=== PATIENT | male | born 1980 | race American Indian/Alaskan Native ===

== ENCOUNTER 2017-12-23 11:04 | Emergency (ER) | payer OTHER ==
[2017-12-23] MEDS ORDERED: ATIVAN IM ONE (11:08)
[2017-12-23] MEDS ORDERED: HALDOL IM ONE (11:08)
[2017-12-23] MEDS ORDERED: ATIVAN IV ONE (11:09)
[2017-12-23] MEDS ORDERED: NACL 0.9% 1000 ML 1,000 ML IV ONE (11:09)
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
[2017-12-23] MEDS ORDERED: BOOSTRIX IM ONE (11:14)
[2017-12-23 11:46] LABS: Basophils # (Auto) 0.1 K/mm3 (0.0-0.1); Eosinophils # (Auto) 0.1 K/mm3 (0.0-0.4); Eosinophils % (Auto) 1.2 % (0.0-4.3); Hematocrit 40.8 % (35.5-45.6); Hemoglobin 14.1 gm/dl (11.8-15.2); Lymphocytes % (Auto) 23.5 % (13.4-35.0); Mean Corpuscular HGB Conc 35 % (32-34); Mean Corpuscular Hemoglobin 33 pg (28-32); Mean Corpuscular Volume 96 fl (84-94); Monocytes # (Auto) 0.5 K/mm3 (0.0-0.8); Monocytes % (Auto) 6.2 % (0.0-7.3); Platelet Count 350 K/mm3 (140-440); Red Blood Count 4.24 M/mm3 (3.65-5.03); Red Cell Distribution Width 13.4 % (13.2-15.2)
[2017-12-23 11:47] LABS: Bilirubin,Urine NEG (Negative); Blood,Urine SM (Negative); Color,Urine Yellow (Yellow); Hyaline Casts,Urine 3 /LPF; Mucus,Urine FEW /HPF; Urobilinogen,Urine < 2.0 mg/dL (<2.0)
[2017-12-23 11:50] LABS: BUN/Creatinine Ratio 17; Blood Urea Nitrogen 15 mg/dL (9-20); Calcium 9.5 mg/dL (8.4-10.2); Hemolysis Index 70
--- NOTE | 2017-12-23 11:52 | Cat Scan Report ---
CT HEAD WITHOUT CONTRAST INDICATION: Headache. COMPARISON: None similar. FINDINGS: Noncontrast head CT demonstrates normal, symmetric ventricles and sulci without acute or recent infarct, hemorrhage, mass effect or midline shift. No abnormal extra-axial fluid collections. Posterior fossa structures and basilar cisterns appear within normal limits. Symmetric eye globes. Slight leftward nasal septal bowing and a 3 mm leftward nasal septal spur. Mild left maxillary and right sphenoid sinus mucosal thickening. Clear remainder imaged paranasal sinuses and mastoid air cells. Intact calvarium. Normal overlying scalp soft tissues. Few radiopaque dental material incidentally noted. Cervical spondylosis. CONCLUSION: No acute intracranial CT abnormality with sinusitis and few other findings, as described. Thank you for the opportunity to participate in this patient's care.
[2017-12-23 11:55] LABS: Amphetamine Screen,Urine PRESUMPTIVE NEGATIVE; Benzodiazepines Screen,Urine PRESUMPTIVE NEGATIVE; Methadone Screen,Urine PRESUMPTIVE NEGATIVE; Opiate Screen,Urine PRESUMPTIVE NEGATIVE
[2017-12-23 12:23] LABS: Cannabinoid Screen,Urine PRESUMPTIVE POSITIVE; Cocaine Screen,Urine PRESUMPTIVE POSITIVE
[2017-12-23] MEDS ORDERED: NACL 0.9% 500 ML IR ONE (12:36)
[2017-12-23] MEDS ORDERED: XYLOCAINE 2% INFILTRATI ONE (12:47)
[2017-12-23] MEDS ORDERED: TRIPLE ANTIBIOTIC TP ONE (15:22)
[2017-12-23 15:42] VITALS: BP 116/85
== END 2017-12-23 16:23 | disposition home or self-care (01) ==
LOC: ED 11:04
DX: S61.311A Laceration without foreign body of left index finger with damage to nail, initial encounter (principal); E86.0 Dehydration; F10.921 Alcohol use, unspecified with intoxication delirium; F19.121 Other psychoactive substance abuse with intoxication delirium; F17.200 Nicotine dependence, unspecified, uncomplicated; F12.10 Cannabis abuse, uncomplicated; Z79.899 Other long term (current) drug therapy; W25.XXXA Contact with sharp glass, initial encounter; Y93.89 Activity, other specified; Y99.8 Other external cause status; Y92.009 Unspecified place in unspecified non-institutional (private) residence as the place of occurrence of the external cause
CPT/HCPCS: 12002; 36415; 70450; 80048; 80307; 81001; 82550; 84439; 84443; 85025; 90471; 90715; 93005; 93010; 96360; 96372; 99285; G0480; J1630; J2060; J7030; 80320; A6250